=== PATIENT | male | born 1995 | race African-American/Black ===

== ENCOUNTER 2022-03-30 11:13 | Emergency (ER) | payer SELFPAY ==
[~2022-03-30] VITALS: Ht 195.6 cm; Wt 122.4 kg
[2022-03-30 13:31] VITALS: BP 118/74
[2022-03-30 13:45] VITALS: BP 115/75
[2022-03-30 14:00] VITALS: BP 121/72
[2022-03-30 14:34] VITALS: BP 121/72
== END 2022-03-30 14:34 | disposition home or self-care (01) | DRG 556 ==
LOC: ED 11:13
DX: M25.571 Pain in right ankle and joints of right foot (principal); F17.290 Nicotine dependence, other tobacco product, uncomplicated